=== PATIENT | female | born 1955 | race Caucasian/White ===

== ENCOUNTER → 2022-04-07 | Outpatient (CLI) | payer MEDICARE, SELFPAY ==
[2022-04-07 09:37] LABS: Hematocrit 42.6 % (37-47); Hemoglobin 14.1 g/dL (12.0-15.0); Mean Corp Hgb Conc 33.1 g/dL (32-36); Mean Corpuscular Hgb 29.9 pg (27.0-32.0); Mean Corpuscular Volume 90.3 fL (81-99); Mean Platelet Vol. 8.9 fl (6.2-12.0); Platelet Count 267 K/mm3 (150-450); RBC Distribution Width CV 12.5 % (11.6-14.6); RBC Distribution Width SD 41.6 fl (35.1-43.9); Red Blood Count 4.72 M/mm3 (4.2-5.4); White Blood Count 5.6 K/mm3 (4.4-11.0)
--- NOTE | 2022-04-07 09:40 | BI_ITS ---
MAMMOGRAPHY - BILATERAL SCREENING REASON FOR EXAM: Female, 67 years old. Routine annual screening examination. PERTINENT HISTORY: Sister with breast cancer. TECHNIQUE: Digital bilateral breast hortencia (3D mammographic acquisition) in the CC and MLO projections. 2-D mediolateral oblique (MLO) and craniocaudad (CC) views of both breasts were obtained. CAD: Full Field Digital Mammography with Computer Added Detection was performed. COMPARISON: Comparison is made with prior outside examination of 06/23/2015. FINDINGS: Breast Composition: There are scattered areas of fibroglandular density. There are no dominant masses or suspicious calcifications. Scattered bilateral skin calcifications. No other significant abnormalities are identified. There has been no significant change since the prior study. BI/SCRN MAMM (CAD)W/HORTENCIA BILAT IMPRESSION: Stable bilateral screening mammogram. Yearly follow-up mammogram recommended. (A) ASSESSMENT CATEGORY: BIRADS Category 2: Benign. A letter regarding these results will be sent to the patient by the facility within 30 days. Approximately 10% of breast cancers are not detected by mammography. A normal mammogram should not delay biopsy of a clinically suspicious abnormality. [id number] Electronically Signed: Isaiah Castillo MD at 10:29 EST ,
[2022-04-07 10:07] LABS: ALB/GLOB Ratio 1.1 RATIO (0.9-2.4); AST(SGOT) 16 U/L (15-37); Alanine Aminotransfer ALT/SGPT 24 U/L (13-56); Alkaline Phosphatase 91 U/L (45-117); Anion Gap 4 (5-15); BUN 14 mg/dL (7-18); BUN/Creat Ratio 29.5 RATIO (10-20); Chloride 104 mmol/L (98-107); Cholesterol 257 mg/dL (200); Creatinine, Serum 0.47 mg/dL (0.55-1.02); EST Glomerular Filtration Rate 140 mL/min (>60); Est Glom Filt Rate - Afr Amer 169 mL/min (>60); Globulin 3.8 g/dL (2.2-4.2); Glucose 96 mg/dL (74-106); High Density Lipoprotein 69 mg/dL; Potassium 3.9 mmol/L (3.5-5.1); Protein, Total 7.8 g/dL (6.4-8.2); Sodium Level 139 mmol/L (136-145); Triglycerides 89 mg/dL; Very Low Density Lipoprotein 18 mg/dL (5-40)
[2022-04-14 01:07] LABS: Lyme IgG P18 Ab Absent (.); Lyme IgG P23 Ab Present (.); Lyme IgG P28 Ab Absent (.); Lyme IgG P30 Ab Absent (.); Lyme IgG P39 Ab Absent (.); Lyme IgG P41 Ab Absent (.); Lyme IgG P45 Ab Absent (.); Lyme IgG P58 Ab Absent (.); Lyme IgG P66 Ab Absent (.); Lyme IgG P93 Ab Absent (.); Lyme IgM P23 Ab Present (.); Lyme IgM P39 Ab Present (.); Lyme IgM P41 Ab Absent (.)
[2022-04-14 07:39] LABS: Lyme IgG WB Interpretation Negative (.); Lyme IgM WB Interpretation Positive (.)
== END | disposition home or self-care (01) ==
PROVIDERS: PCP Nurse Practitioner Family
DX: Z12.31 Encounter for screening mammogram for malignant neoplasm of breast (principal); Z80.3 Family history of malignant neoplasm of breast; Z13.0 Encounter for screening for diseases of the blood and blood-forming organs and certain disorders involving the immune mechanism; Z13.220 Encounter for screening for lipoid disorders; E66.9 Obesity, unspecified; A69.20 Lyme disease, unspecified
CPT/HCPCS: 36415; 77063; 77067; 80053; 80061; 85027; 86617

== ENCOUNTER → 2022-07-25 | Outpatient (CLI) | payer MEDICARE, SELFPAY ==
[2022-07-25 10:38] LABS: Erythrocyte Sedimentation Rate 3 mm/hr (0-30)
[2022-07-25 10:42] LABS: Hematocrit 41.4 % (37-47); Hemoglobin 13.6 g/dL (12.0-15.0); Mean Corp Hgb Conc 32.9 g/dL (32-36); Mean Corpuscular Hgb 30.1 pg (27.0-32.0); Mean Corpuscular Volume 91.6 fL (81-99); Mean Platelet Vol. 9.6 fl (6.2-12.0); Platelet Count 251 K/mm3 (150-450); RBC Distribution Width CV 12.5 % (11.6-14.6); RBC Distribution Width SD 42.1 fl (35.1-43.9); Red Blood Count 4.52 M/mm3 (4.2-5.4); White Blood Count 5.1 K/mm3 (4.4-11.0)
[2022-07-25 10:58] LABS: CRP < 2.90 mg/L (0.0-3.0); Rheumatoid Factor < 10.0 IU/mL (<15)
[2022-07-26 15:23] LABS: ANTINUCLEAR ANTIBODIES DIRECT Negative (Negative)
[2022-07-26 15:24] LABS: CCP IgG Antibodies 0 units (0-19)
== END | disposition home or self-care (01) ==
LOC: LAB 09:36
PROVIDERS: PCP Nurse Practitioner Family; Visit Provider Nurse Practitioner Family
DX: A69.20 Lyme disease, unspecified (principal)
CPT/HCPCS: 36415; 85027; 85652; 86038; 86140; 86200; 86431

== ENCOUNTER 2022-10-06 08:50 | Day surgery (SDC) | payer MEDICARE, SELFPAY ==
[2022-10-06] VITALS (8 sets, daily range): BP systolic 119–145; BP diastolic 75–97; PULSE 72–76; RESP 16–108; TEMP 36.2–36.6; O2SAT 96–100; BMI 32.4
--- NOTE | 2022-10-06 | COLBX_PTH ---
PATIENT: KATHIA SPIVEY LOC: EN U#:[id number] AGE/SX: 67/F ROOM: RE10/06/[address]: Dr. Mango Aiken DO : 1955 BED: DIS: 10/06/2022 SPEC #: [id number] RECD: 10/06/22 13:57 STATUS: RE REMarcello #: [id number] MARTA: 10/06/22 00:[address]: Mango Aiken DEPT: SURGICAL PATHOLOGY RECD BY: Byron Bell ENTERED: 10/06/22 13:57 SP TYPE: COLON BX OTHR DR: Zayda Guerra, VICE PRESIDENT OF MARKETING-C Tissues: A - Cecum, NOS B - SPLENIC FLEXURE Procedures: Surgery Specimen Level IV HEADER OPERATION: Colonoscopy ? open access (MAC), polypectomy, biopsy PRE-OP DIAGNOSIS: Screening TISSUE SUBMITTED: A ? Polyp cecum, B ? Polyp splenic flexure MICROSCOPIC DIAGNOSIS A. Cecal polyp, biopsy: Tubular adenoma. B. Colon polyp at splenic flexure, biopsy: Tubular adenoma. AM:aneesh 10/07/2022 MICROSCOPIC DESCRIPTION Slides are reviewed. GROSS DESCRIPTION A - Received in fixative is one container labeled with the patient's name and designated polyp cecum. The specimen consists of one irregular fragment of light nava soft tissue that measures 0.4 x 0.3 x 0.1 cm. The specimen is totally submitted in one cassette. B - Received in fixative is one container labeled with the patient's name and designated polyp splenic flexure. The specimen consists of one irregular fragment of light nava soft tissue that measures 0.5 x 0.2 x 0.1 cm. The specimen is totally submitted in one cassette. / SJ:aneesh 10/06/2022 TC:5 CPT: 60477 x2
[2022-10-06] MEDS: Lactated Ringers 1,000 ML 15 ML IV (09:28)
--- NOTE | 2022-10-06 10:07 | HP.PCM_ITS ---
HPI - General General Date of Admission: 10/06/22 Date of Service: 10/06/22 Chief Complaint: Colonoscopy HPI Narrative KATHIA SPIVEY, is a 67 F who presents today for colonoscopy. She had a colonoscopy approximately 3 years ago at [facility] and was determined to have at least 3 adenomatous polyps that were removed. She comes back today for surveillance colonoscopy. She is not having abdominal pain. Since she denies any cramping. Has not any chest pain shortness of breath. [facility] Medical History (Updated 10/03/22 @ 14:41 by Jennyfer Dyson) Arthritis Excessive bleeding Heartburn History of colon polyps History of trigger finger Non-smoker PONV (postoperative nausea and vomiting) Wears glasses Wears partial dentures Home Medications aspirin 81 mg tablet,delayed release (Adult Low Dose Aspirin) 81 mg PO DAILY 07/20/22 [History Last Taken Unknown] multivitamin 1 tab PO DAILY 07/20/22 [History Last Taken Unknown] vitamins A,C,and E-selenium capsule (Super Antioxidant capsule) 1 cap PO DAILY 07/20/22 [History Last Taken Unknown] ascorbic acid (vitamin C) 500 mg tablet 500 mg PO DAILY 10/03/22 [History Last Taken Unknown] omega 1-emf-ehl-fish oil 1,200 mg (144 mg-216 mg) capsule (Fish Oil) 1 cap PO DAILY 10/03/22 [History Last Taken Unknown] Allergy/AdvReac Type Severity Reaction Status Date / Time codeine Allergy Nausea/Vom/ Verified 10/06/22 09:22 Diarrhea meperidine [From Demerol] AdvReac Nausea/Vom/ Verified 10/06/22 09:22 Diarrhea tramadol AdvReac Nausea/Vom/ Verified 10/06/22 09:22 Diarrhea Surgical History (Updated 10/03/22 @ 14:33 by Jennyfer Dyson) History of appendectomy History of bilateral carpal tunnel release History of cholecystectomy History of colonoscopy History of foot surgery History of hysterectomy History of tonsillectomy Social History Smoking Status: Never smoker ROS Review of Systems ROS Unobtainable: other Constitutional Constitutional: Denies fatigue, fever(s), poor appetite, weight gain or weight loss ENT HEENT: Denies mouth lesions Cardiovascular Cardiovascular: Denies abdominal bloating, abdominal edema or abdominal pain Respiratory/Chest Respiratory/Chest: Denies change in mental status, change in phlegm color, chest congestion or chest tightness Gastrointestinal Gastrointestinal: Denies belching, bloating, change in bowel habits, change in stool character, chewing difficulty, coffee ground emesis, constipation, crampi ng, diarrhea, dyspepsia, dysphagia, early satiety, excessive flatus, fecal incontinence, heartburn, hematemesis, hematochezia, hemorrhoids, loose stools, melena, nausea, odynophagia, rectal bleeding, tenesmus, vomiting or weight changes Genitourinary Genitourinary: Denies abdominal discomfort, burning urination or itching Musculoskeletal Musculoskeletal: Reports as per HPI; Denies muscle weakness or myalgias Integumentary Integumentary: Denies jaundice Neurologic Neurologic: Denies lack of coordination or weakness Psychiatric Psychiatric: Denies confusion, depression, memory loss, mood swings, paranoia or suicidal ideation Endocrine Endocrinology: Denies systems reviewed and no addt'l complaints, except as documented Hematologic/Lymphatic Hematologic/Lymphatic: Denies anemia, easy bleeding, easy bruising or lymphadenopathy Allergic/Immunologic Allergic/Immunologic: Denies systems reviewed and no addt'l complaints, except as documented Vital Signs Vital Signs Vital Signs: 10/06/22 09:23 10/06/22 09:23 Temperature 97.9 F Temperature Source Temporal Pulse Rate 76 Respiratory Rate 16 Respiratory Pattern Normal Blood Pressure 135/85 H Blood Pressure Mean 101 Blood Pressure Source Monitor Blood Pressure Position Semi-Fowlers Blood Pressure Location Right Arm Pulse Ox 100 Oxygen Delivery Method Room Air Weight Weight: 183 lb Body Mass Index (BMI) 32.4 Assessment & Plan Assessment/Plan (1) Encounter for screening for malignant neoplasm of colon: PLAN: She was explained alternatives, benefits, risks including outstanding bleeding, infection, sepsis, perforation, need for emergent surgery . She will have an ASA of 2.
--- NOTE | 2022-10-06 10:46 | OP.CCLET_ITS ---
10/06/2022 Misha Stewart Re : Colonoscopy procedure for Nancy Rausch Dear Charlie This procedure was performed on September. My impressions and recommendations are as follows: Impressions : - Diverticulosis in the recto-sigmoid colon, in the sigmoid colon and in the descending colon. - One 5 mm polyp in the sigmoid colon, removed with a jumbo cold forceps. Resected and retrieved. - One 9 mm polyp in the cecum, removed with a hot snare. Resected and retrieved. Recommendations : - Repeat colonoscopy in 3 years for surveillance. - Continue present medications. My findings are described in the full procedure note, which is enclosed. If I can be of further assistance, please feel free to contact me at . Sincerely, Mango Aiken, 10/06/2022 10:45:22 AM This report has been signed electronically.
--- NOTE | 2022-10-06 10:46 | OP.COLON_ITS ---
Patient Name: Nancy Rausch Procedure Date: 10/06/2022 10:11 AM Date of : 1955 Age: 67 Procedure: Colonoscopy Indications: High risk colon cancer surveillance: Personal history of colonic polyps Providers: Mango Aiken DO Referring MD: Mango Aiken DO Medicines: Monitored Anesthesia Care Patient Profile: This is a 67 year old female. Refer to note in patient chart for documentation of history and physical. Last Colonoscopy: 3 years ago. Complications: No immediate complications. Procedure: Pre-Anesthesia Assessment: - Prior to the procedure, a History and Physical was performed, and patient medications and allergies were reviewed. The risks and benefits of the procedure and the sedation options and risks were discussed with the patient. All questions were answered and informed consent was obtained. Patient identification and proposed procedure were verified by the physician in the pre-procedure area. Mental Status Examination: alert and oriented. Airway Examination: normal oropharyngeal airway and neck mobility. Respiratory Examination: clear to auscultation. CV Examination: normal. Prophylactic Antibiotics: The patient does not require prophylactic antibiotics. Prior Anticoagulants: The patient has taken no previous anticoagulant or antiplatelet agents. After reviewing the risks and benefits, the patient was deemed in satisfactory condition to undergo the procedure. The anesthesia plan was to use monitored anesthesia care (MAC). Immediately prior to administration of medications, the patient was re-assessed for adequacy to receive sedatives. The heart rate, respiratory rate, oxygen saturations, blood pressure, adequacy of pulmonary ventilation, and response to care were monitored throughout the procedure. The physical status of the patient was re-assessed after the procedure. After I obtained informed consent, the scope was passed under direct vision. Throughout the procedure, the patient's blood pressure, pulse, and oxygen saturations were monitored continuously. The pediatric colonoscope was introduced through the anus and advanced to the cecum, identified by appendiceal orifice and ileocecal valve. The colonoscopy was performed without difficulty. The patient tolerated the procedure well. The quality of the bowel preparation was adequate. Scope In: 10:22:03 AM Scope Withdrawal Time 0 hours 9 minutes 57 seconds Scope Out: 10:36:58 AM Total Procedure Duration Time 0 hours 14 minutes 55 seconds Findings: The perianal and digital rectal examinations were normal. A few small and large-mouthed diverticula were found in the recto-sigmoid colon, sigmoid colon and descending colon. A 5 mm polyp was found in the sigmoid colon. The polyp was sessile. The polyp was removed with a jumbo cold forceps. Resection and retrieval were complete. Verification of patient identification for the specimen was done. Estimated blood loss was minimal. A 9 mm polyp was found in the cecum. The polyp was sessile. The polyp was removed with a hot snare. Resection and retrieval were complete. Verification of patient identification for the specimen was done. Estimated blood loss was minimal. Impression: - Diverticulosis in the recto-sigmoid colon, in the sigmoid colon and in the descending colon. - One 5 mm polyp in the sigmoid colon, removed with a jumbo cold forceps. Resected and retrieved. - One 9 mm polyp in the cecum, removed with a hot snare. Resected and retrieved. Recommendation: - Repeat colonoscopy in 3 years for surveillance. - Continue present medications. Procedure Code(s): --- Professional --- 17835, Colonoscopy, flexible; with removal of tumor(s), polyp(s), or other lesion(s) by snare technique 42216, 59, Colonoscopy, flexible; with biopsy, single or multiple CPT copyright 2017 [employer]. All rights reserved. The codes documented in this report are preliminary and upon director of revenue review may be revised to meet current compliance requirements. Mango Aiken DO 10/06/2022 10:45:22 AM This report has been signed electronically. Number of Addenda: 0 Note Initiated On: 10/06/2022 10:11 AM
== END 2022-10-06 12:22 | disposition home or self-care (01) ==
LOC: EN 08:51 → AC 09:12
PROVIDERS: PCP Nurse Practitioner Family; Referring Provider Nurse Practitioner Family; Visit Provider Internal Medicine Gastroenterology
PROC: 0DJD8ZZ Inspection of Lower Intestinal Tract, Via Natural or Artificial Opening Endoscopic (ICD-10-PCS; CPT 45378; principal; 2022-10-06 09:55)
DX: Z12.11 Encounter for screening for malignant neoplasm of colon (principal); K57.30 Diverticulosis of large intestine without perforation or abscess without bleeding; Z86.010 Personal history of colon polyps; Z79.82 Long term (current) use of aspirin; D12.0 Benign neoplasm of cecum; D12.3 Benign neoplasm of transverse colon
CPT/HCPCS: 45380; 45385; 88305; J7120; J2405

== ENCOUNTER → 2023-10-12 | Outpatient (CLI) | payer MEDICARE, SELFPAY ==
--- NOTE | 2023-10-12 08:58 | US_ITS ---
STUDY: ABDOMINAL ULTRASOUND REASON FOR EXAM: Female, 68 years old. Diffuse abdominal pain TECHNIQUE: Transabdominal ultrasound was performed with real-time and static marc scale imaging. TECHNICAL QUALITY: Adequate. COMPARISON: None. FINDINGS: Liver: The liver measures 17.1 cm. There is increased echogenicity consistent with fatty infiltration. The bile ducts are within normal limits. There is hepatic color flow. The direction of portal flow is hepatopetal. There is no demonstrated mass lesion. Portal vein measurement: Gallbladder: The patient is status post cholecystectomy. Common Bile Duct (C.B.D.): The common bile duct measures 6 mm. Pancreas: Normal size of the head, body and tail of the pancreas. There is normal echogenicity of the pancreas. There is no demonstrated pancreatic mass or cyst. Spleen: Normal size of the spleen. The spleen measures 9.2 cm. Right Kidney: Normal size of the right kidney. The right kidney measures 10.8 x 5.3 x 4.6 cm. Normal renal cortex. The right cortex measures 1.2 cm. There is no demonstrated renal mass or cyst. There is no right hydronephrosis. Left Kidney: Normal size of the left kidney. The left kidney measures 12.7 x 5.4 x 5.2 cm. Normal renal cortex. The left cortex measures 1.3 cm. There is no demonstrated renal mass or cyst. There is no left hydronephrosis. Aorta: Tapers normally I.V.C.: The IVC is patent. There is no ascites. US/Abdomen Complete IMPRESSION: Fatty liver, no discrete lesion Previous cholecystectomy Electronically Signed: Daniel Najera MD at 12:50 EDT ,
[2023-10-12 10:24] LABS: Hemoglobin 11.9 g/dL (12.0-15.0); Mean Corp Hgb Conc 32.2 g/dL (32-36); Mean Corpuscular Hgb 29.7 pg (27.0-32.0); Mean Corpuscular Volume 92.3 fL (81-99); Mean Platelet Vol. 8.9 fl (6.2-12.0); Platelet Count 349 K/mm3 (150-450); RBC Distribution Width CV 12.1 % (11.6-14.6); RBC Distribution Width SD 41.1 fl (35.1-43.9); Red Blood Count 4.01 M/mm3 (4.2-5.4); White Blood Count 4.8 K/mm3 (4.4-11.0)
[2023-10-12 11:05] LABS: ALB/GLOB Ratio 0.9 RATIO (0.9-2.4); AST(SGOT) 20 U/L (15-37); Alanine Aminotransfer ALT/SGPT 29 U/L (13-56); Albumin, Serum 3.4 g/dL (3.2-5.0); Alkaline Phosphatase 68 U/L (45-117); Anion Gap 7 (5-15); BUN 13 mg/dL (7-18); BUN/Creat Ratio 25.7 RATIO (10-20); Calcium,Total 9.3 mg/dL (8.5-10.1); Chloride 108 mmol/L (98-107); EST Glomerular Filtration Rate 129 mL/min (>60); Est Glom Filt Rate - Afr Amer 157 mL/min (>60); Globulin 3.6 g/dL (2.2-4.2); Glucose 89 mg/dL (74-106); Potassium 3.8 mmol/L (3.5-5.1); Sodium Level 141 mmol/L (136-145)
== END | disposition home or self-care (01) ==
PROVIDERS: PCP Family Medicine; Referring Provider Nurse Practitioner Family; Visit Provider Nurse Practitioner Family
DX: R10.9 Unspecified abdominal pain (principal)
CPT/HCPCS: 36415; 76700; 80053; 85027

== ENCOUNTER 2025-05-07 12:58 | Emergency (ER) | payer MEDICARE, SELFPAY ==
[2025-05-07 12:59] VITALS: BP 164/88; PULSE 79; RESP 16; TEMP 36.2; O2SAT 100
[2025-05-07 13:12] LABS: Hematocrit 42.4 % (37-47); Hemoglobin 14.0 g/dL (12.0-15.0); Immature Granulocytes Count 0.010 X10^3/uL (0.0-0.0); Mean Corp Hgb Conc 33.0 g/dL (32-36); Mean Corpuscular Volume 90.2 fL (81-99); Mean Platelet Vol. 9.2 fl (6.2-12.0); NRBC Flagged by Analyzer 0 % (0-5); Platelet Count 269 K/mm3 (150-450); RBC Distribution Width CV 12.3 % (11.6-14.6); RBC Distribution Width SD 40.5 fl (35.1-43.9); Red Blood Count 4.70 M/mm3 (4.2-5.4); White Blood Count 5.9 K/mm3 (4.4-11.0)
[2025-05-07 13:37] LABS: AST(SGOT) 27 U/L (<=31); Alanine Aminotransfer ALT/SGPT 33 U/L (<=34); Albumin, Serum 4.6 g/dL (3.4-4.8); Alkaline Phosphatase 85 U/L (35-104); Anion Gap 9 (5-15); BUN 7 mg/dL (4-19); BUN/Creat Ratio 13.2 RATIO (10-20); Calcium,Total 10.1 mg/dL (7.6-11.0); Carbon Dioxide 28.5 mmol/L (21.0-32.0); Chloride 102 mmol/L (98-108); Globulin 2.8 g/dL (2.2-4.2); Glucose 95 mg/dL (70-99); Potassium 4.0 mmol/L (3.3-5.1)
[2025-05-07 14:58] VITALS: BP 161/91; PULSE 78; O2SAT 100
[2025-05-07 15:11] LABS: Mucous, Urine 0 SEEN /hpf (<or=2+); Red Blood Cells-Urine 0 SEEN /hpf (0-5); Squamous Epithelial Cells - UA 0 SEEN /hpf (5-10)
[2025-05-07 15:12] LABS: Color, Urine Straw (Yellow); Glucose, Dipstick Normal (Normal); Ketone-Dipstick Negative (Negative); Leukocyte Esterase-Dipstick Negative /ul (Negative); Nitrite-Dipstick Negative (Negative); Occult Blood-Urine 10 /ul (Negative); Protein-Dipstick Negative (Negative); Specific Gravity, Urine 1.010 (1.002-1.030); Urine Bilirubin Dipstick Negative (Negative)
[2025-05-07] MEDS: 0.9% Normal Saline (1000mL) 1,000 ML 125 ML IV (15:15)
[2025-05-07 16:00] VITALS: BP 134/79; PULSE 56; O2SAT 96
[2025-05-07 16:07] LABS: Anion Gap 10 (5-15); BUN 7 mg/dL (4-19); BUN/Creat Ratio 14.0 RATIO (10-20); Calcium,Total 9.5 mg/dL (7.6-11.0); Carbon Dioxide 27.3 mmol/L (21.0-32.0); Chloride 104 mmol/L (98-108); Glucose 94 mg/dL (70-99); Potassium 3.6 mmol/L (3.3-5.1)
--- NOTE | 2025-05-07 16:49 | EX.ED.DYSGE1 ---
HPI History of Present Illness Chief Complaint: Flank Pain Detail of Chief Complaint: Left-sided flank/left lower quadrant abdominal pain Informant: patient Onset/Context/Timing Onset: Yesterday and - (Triage documents pain started 3 days ago. Patient told me yesterday.) Context: Sudden Onset Timing: Continuous and Waxes and wanes Quality: Pain Location: Left flank/left lower quadrant Current Severity: Mild Maximum Severity: Severe Worsened by: Nothing specific Relieved by: If patient flexes at the hip feels better Associated Symptoms Associated Symptoms: None Narrative Narrative: Patient is a 70-year-old woman. She has history of hysterectomy with unilateral salpingo-oophorectomy approximate 40 years ago, cholecystectomy, appendectomy, recent colonoscopy by Dr. Gentile. Patient and family states they were told everything looks fine . He has also had orthopedic surgery. She is on an aspirin. Review of records indicates patient has history of heartburn. She is a non-smoker. Patient denies fever, chills night sweats. Patient [place] cough, shortness of breath or difficulty breathing. Patient denies chest pain. Patient denies heartburn, indigestion. Patient denies dysuria, frequency, urgency or hematuria. Patient denies vaginal discharge or bleeding. Patient denies direct or indirect trauma. Patient has not noted a rash. Patient denies prior symptoms. Prior similar symptoms: No Recent Illness/Hospitalization: No [facility] Medical History Wears glasses Wears partial dentures Arthritis Excessive bleeding Heartburn Non-smoker PONV (postoperative nausea and vomiting) History of trigger finger History of colon polyps Home Medications ?Medication ?Instructions ?Recorded ?Last Taken ?Type aspirin 81 mg tablet,delayed 81 mg PO DAILY 07/20/22 Unknown History release (Adult Low Dose Aspirin) multivitamin 1 tab PO DAILY 07/20/22 Unknown History vitamins A,C,and E-selenium 1 cap PO DAILY 07/20/22 Unknown History capsule (Super Antioxidant capsule) ascorbic acid (vitamin C) 500 mg 500 mg PO DAILY 10/03/22 Unknown History tablet omega 1-nzs-rli-fish oil 1,200 mg 1 cap PO DAILY 10/03/22 Unknown History (144 mg-216 mg) capsule (Fish Oil) amoxicillin 875 mg-potassium 875 mg (0.875 x 875-125 mg) PO 05/07/25 Unknown Rx clavulanate 125 mg tablet Q12H #20 TABLETS hydrocodone-acetaminophen 5-325mg 1 tab PO Q6H PRN PRN Pain 3 days 05/07/25 Unknown Rx 5mg-325mg #10 TABLETS Allergy/AdvReac Type Severity Reaction Status Date / Time codeine Allergy Nausea/Vom/ Verified 05/07/25 12:59 Diarrhea meperidine (From Demerol) AdvReac Nausea/Vom/ Verified 05/07/25 12:59 Diarrhea tramadol AdvReac Nausea/Vom/ Verified 05/07/25 12:59 Diarrhea Family History no significant family his Surgical History History of hysterectomy History of bilateral carpal tunnel release History of foot surgery History of cholecystectomy History of tonsillectomy History of appendectomy History of colonoscopy Social History Smoking Status: Never smoker ROS ROS ED Constitutional Constitutional ED: Denies chills, fever(s), subjective, sweats or weight loss Cardiovascular Cardiovascular: Denies chest pain, palpitations or racing heartbeat Respiratory/Chest Respiratory/Chest: Denies cough, dyspnea or dyspnea on exertion Gastrointestinal Gastrointestinal: Reports abdominal pain; Denies constipation, diarrhea, melena, nausea or vomiting Genitourinary Genitourinary ED: Denies dysuria, hematuria or urinary frequency Musculoskeletal Musculoskeletal: Reports back pain; Denies arthralgias, myalgias or neck pain Integumentary Denies rash Neurologic Neurologic: Denies paresthesias or weakness Hematologic/Lymphatic Hematologic/Lymphatic: Reports systems reviewed and no addt'l complaints, except as documented EXAM Physical Exam Const Vital Signs: 05/07/25 12:59 05/07/25 14:58 05/07/25 16:00 Temperature 97.2 F L Temperature Source Temporal Pulse Rate 79 78 56 L Respiratory Rate 16 Blood Pressure 164/88 H 161/91 H 134/79 H Blood Pressure Mean 113 114 97 Pulse Ox 100 100 96 Oxygen Delivery Method Room Air Room Air 05/07/25 18:00 Temperature Temperature Source Pulse Rate 78 Respiratory Rate 15 Blood Pressure 140/78 H Blood Pressure Mean 98 Pulse Ox 97 Oxygen Delivery Method Room Air Positive well nourished and well developed General Appearance ED: well developed; Negative for pallor HEENT Reports dry mucous membranes HEENT Narrative: Head is atraumatic and normocephalic. Ears normal. Nares patent. Posterior pharynx is normal. Mouth ED: Yes dry mucous membranes Mouth: dry mucous membranes Eyes PERRL and EOMs intact bilaterally General Eye ED: Negative for pale conjunctiva or scleral icterus Neck no lymphadenopathy, supple and no JVD Resp normal respiratory effort and clear to auscultation bilaterally Cardio regular rate, regular rhythm, S1 normal heart sound, S2 normal heart sound and no murmurs GI normal to inspection, nondistended, normoactive bowel sounds, non-distended and no masses; Negative for non-tender or hepatosplenomegaly Auscultation: hypoactive bowel sounds Back/Spine no CVA tenderness Extremity normal to inspection General Extremety ED: Negative for edema or tenderness General Extremity: Negative for edema Neuro oriented x3 and CN's II-XII intact bilaterally Sensorium / Orientation: alert and orientation impaired Motor Exam: strength 5/5 throughout Psych mental status grossly normal Skin no rashes or lesions noted, no wounds and skin turgor normal General Skin Exam: Negative for jaundice or pallor Lesions: No lesion noted Rashes: No rashes noted MDM MDM MDM Narrative Medical decision making narrative: Differential diagnosis is musculoskeletal, ureterolithiasis with obstruction, retroperitoneal pathology, diverticulitis. Will obtain CBC, BMP, UA and depending on results of UA will obtain CT with or without contrast. History & Record Review Additional record(s) reviewed:: Prior outpatient record (Colonoscopy performed by Dr. Aiken September 2022. Colonoscopy reveals diverticulosis in the rectosigmoid colon. There was one 5 mm polyp that was noted and removed. Recommendation at that time was surveillance.) Lab Data Attestation: I reviewed the patient's lab results. Lab results narrative: CBC is remarkable for lymphocytosis. Competence of metabolic panel is unremarkable. BUN and creatinine are 7 and 0.55. CO2 anion gap is normal. Labs: Laboratory Results - last 24 hr 05/07/25 05/07/25 05/07/25 13:04 15:00 15:00 WBC 5.9 RBC 4.70 Hgb 14.0 Hct 42.4 MCV 90.2 MCH 29.8 MCHC 33.0 RDW Std Deviation 40.5 RDW Coeff of Randy 12.3 Plt Count 269 MPV 9.2 Immature Gran % (Auto) 0.200 Neut % (Auto) 45.3 L Lymph % (Auto) 46.5 H [place] % (Auto) 5.8 Eos % (Auto) 1.7 Baso % (Auto) 0.5 Absolute Neuts (auto) 2.7 Absolute Lymphs (auto) 2.73 Nucleated RBC % 0 Sodium 140 Potassium 4.0 Chloride 102 Carbon Dioxide 28.5 Anion Gap 9 BUN 7 Creatinine 0.55 L Est GFR (MDRD) Non-Af 100 BUN/Creatinine Ratio 13.2 Glucose 95 Calcium 10.1 Total Bilirubin 0.52 AST 27 ALT 33 Alkaline Phosphatase 85 Total Protein 7.4 Albumin 4.6 Globulin 2.8 Albumin/Globulin Ratio 1.6 Urine Color Straw Cancelled Urine Clarity Clear Urine pH Ur Specific [place] U Specif Grav (Refrac) Urine Protein Urine Glucose (UA) Urine Ketones Urine Occult Blood Urine Nitrite Urine Bilirubin Urine Urobilinogen Ur Leukocyte Esterase Urine RBC Urine WBC Ur Squamous Epith Cells Ur Transition Epith Cell Ur Renal Epithelial Cell Calcium Oxalate Crystal Uric Acid Crystals Triple Phos Crystals Other Crystals Amorphous Sediment Urine Bacteria Hyaline Casts Fine Granular Casts Coarse Granular Casts Waxy Casts RBC Casts WBC Casts Urine Mucus Urine Trichomonas Urine Yeast 05/07/25 05/07/25 05/07/25 15:00 15:00 15:00 WBC RBC Hgb Hct MCV MCH MCHC RDW Std Deviation RDW Coeff of Randy Plt Count MPV Immature Gran % (Auto) Neut % (Auto) Lymph % (Auto) [place] % (Auto) Eos % (Auto) Baso % (Auto) Absolute Neuts (auto) Absolute Lymphs (auto) Nucleated RBC % Sodium Potassium Chloride Carbon Dioxide Anion Gap BUN Creatinine Est GFR (MDRD) Non-Af BUN/Creatinine Ratio Glucose Calcium Total Bilirubin AST ALT Alkaline Phosphatase Total Protein Albumin Globulin Albumin/Globulin Ratio Urine Color Urine Clarity Cancelled Urine pH 8.0 Cancelled Ur Specific [place] 1.010 Cancelled U Specif Grav (Refrac) Cancelled Urine Protein Negative Urine Glucose (UA) Urine Ketones Urine Occult Blood Urine Nitrite Urine Bilirubin Urine Urobilinogen Ur Leukocyte Esterase Urine RBC Urine WBC Ur Squamous Epith Cells Ur Transition Epith Cell Ur Renal Epithelial Cell Calcium Oxalate Crystal Uric Acid Crystals Triple Phos Crystals Other Crystals Amorphous Sediment Urine Bacteria Hyaline Casts Fine Granular Casts Coarse Granular Casts Waxy Casts RBC Casts WBC Casts Urine Mucus Urine Trichomonas Urine Yeast 05/07/25 05/07/25 05/07/25 15:00 15:00 15:00 WBC RBC Hgb Hct MCV MCH MCHC RDW Std Deviation RDW Coeff of Randy Plt Count MPV Immature Gran % (Auto) Neut % (Auto) Lymph % (Auto) [place] % (Auto) Eos % (Auto) Baso % (Auto) Absolute Neuts (auto) Absolute Lymphs (auto) Nucleated RBC % Sodium Potassium Chloride Carbon Dioxide Anion Gap BUN Creatinine Est GFR (MDRD) Non-Af BUN/Creatinine Ratio Glucose Calcium Total Bilirubin AST ALT Alkaline Phosphatase Total Protein Albumin Globulin Albumin/Globulin Ratio Urine Color Urine Clarity Urine pH Ur Specific [place] U Specif Grav (Refrac) Urine Protein Cancelled Urine Glucose (UA) Normal Cancelled Urine Ketones Negative Cancelled Urine Occult Blood 10 H Urine Nitrite Urine Bilirubin Urine Urobilinogen Ur Leukocyte Esterase Urine RBC Urine WBC Ur Squamous Epith Cells Ur Transition Epith Cell Ur Renal Epithelial Cell Calcium Oxalate Crystal Uric Acid Crystals Triple Phos Crystals Other Crystals Amorphous Sediment Urine Bacteria Hyaline Casts Fine Granular Casts Coarse Granular Casts Waxy Casts RBC Casts WBC Casts Urine Mucus Urine Trichomonas Urine Yeast 05/07/25 05/07/25 05/07/25 15:00 15:00 15:00 WBC RBC Hgb Hct MCV MCH MCHC RDW Std Deviation RDW Coeff of Randy Plt Count MPV Immature Gran % (Auto) Neut % (Auto) Lymph % (Auto) [place] % (Auto) Eos % (Auto) Baso % (Auto) Absolute Neuts (auto) Absolute Lymphs (auto) Nucleated RBC % Sodium Potassium Chloride Carbon Dioxide Anion Gap BUN Creatinine Est GFR (MDRD) Non-Af BUN/Creatinine Ratio Glucose Calcium Total Bilirubin AST ALT Alkaline Phosphatase Total Protein Albumin Globulin Albumin/Globulin Ratio Urine Color Urine Clarity Urine pH Ur Specific [place] U Specif Grav (Refrac) Urine Protein Urine Glucose (UA) Urine Ketones Urine Occult Blood Cancelled Urine Nitrite Negative Cancelled Urine Bilirubin Negative Cancelled Urine Urobilinogen Normal Ur Leukocyte Esterase Urine RBC Urine WBC Ur Squamous Epith Cells Ur Transition Epith Cell Ur Renal Epithelial Cell Calcium Oxalate Crystal Uric Acid Crystals Triple Phos Crystals Other Crystals Amorphous Sediment Urine Bacteria Hyaline Casts Fine Granular Casts Coarse Granular Casts Waxy Casts RBC Casts WBC Casts Urine Mucus Urine Trichomonas Urine Yeast 05/07/25 05/07/25 05/07/25 15:00 15:00 15:00 WBC RBC Hgb Hct MCV MCH MCHC RDW Std Deviation RDW Coeff of Randy Plt Count MPV Immature Gran % (Auto) Neut % (Auto) Lymph % (Auto) [place] % (Auto) Eos % (Auto) Baso % (Auto) Absolute Neuts (auto) Absolute Lymphs (auto) Nucleated RBC % Sodium Potassium Chloride Carbon Dioxide Anion Gap BUN Creatinine Est GFR (MDRD) Non-Af BUN/Creatinine Ratio Glucose Calcium Total Bilirubin AST ALT Alkaline Phosphatase Total Protein Albumin Globulin Albumin/Globulin Ratio Urine Color Urine Clarity Urine pH Ur Specific [place] U Specif Grav (Refrac) Urine Protein Urine Glucose (UA) Urine Ketones Urine Occult Blood Urine Nitrite Urine Bilirubin Urine Urobilinogen Cancelled Ur Leukocyte Esterase Negative Cancelled Urine RBC 0 SEEN Cancelled Urine WBC 0 SEEN Ur Squamous Epith Cells Ur Transition Epith Cell Ur Renal Epithelial Cell Calcium Oxalate Crystal Uric Acid Crystals Triple Phos Crystals Other Crystals Amorphous Sediment Urine Bacteria Hyaline Casts Fine Granular Casts Coarse Granular Casts Waxy Casts RBC Casts WBC Casts Urine Mucus Urine Trichomonas Urine Yeast 05/07/25 05/07/25 05/07/25 15:00 15:00 15:00 WBC RBC Hgb Hct MCV MCH MCHC RDW Std Deviation RDW Coeff of Randy Plt Count MPV Immature Gran % (Auto) Neut % (Auto) Lymph % (Auto) [place] % (Auto) Eos % (Auto) Baso % (Auto) Absolute Neuts (auto) Absolute Lymphs (auto) Nucleated RBC % Sodium Potassium Chloride Carbon Dioxide Anion Gap BUN Creatinine Est GFR (MDRD) Non-Af BUN/Creatinine Ratio Glucose Calcium Total Bilirubin AST ALT Alkaline Phosphatase Total Protein Albumin Globulin Albumin/Globulin Ratio Urine Color Urine Clarity Urine pH Ur Specific [place] U Specif Grav (Refrac) Urine Protein Urine Glucose (UA) Urine Ketones Urine Occult Blood Urine Nitrite Urine Bilirubin Urine Urobilinogen Ur Leukocyte Esterase Urine RBC Urine WBC Cancelled Ur Squamous Epith Cells 0 SEEN Cancelled Ur Transition Epith Cell Cancelled Ur Renal Epithelial Cell Cancelled Calcium Oxalate Crystal Cancelled Uric Acid Crystals Cancelled Triple Phos Crystals Cancelled Other Crystals Cancelled Amorphous Sediment Cancelled Urine Bacteria 0 SEEN Cancelled Hyaline Casts Cancelled Fine Granular Casts Cancelled Coarse Granular Casts Cancelled Waxy Casts Cancelled RBC Casts Cancelled WBC Casts Cancelled Urine Mucus 0 SEEN Urine Trichomonas Urine Yeast 05/07/25 05/07/25 15:00 15:26 WBC RBC Hgb Hct MCV MCH MCHC RDW Std Deviation RDW Coeff of Randy Plt Count MPV Immature Gran % (Auto) Neut % (Auto) Lymph % (Auto) [place] % (Auto) Eos % (Auto) Baso % (Auto) Absolute Neuts (auto) Absolute Lymphs (auto) Nucleated RBC % Sodium 141 Potassium 3.6 Chloride 104 Carbon Dioxide 27.3 Anion Gap 10 BUN 7 Creatinine 0.51 L Est GFR (MDRD) Non-Af 102 BUN/Creatinine Ratio 14.0 Glucose 94 Calcium 9.5 Total Bilirubin AST ALT Alkaline Phosphatase Total Protein Albumin Globulin Albumin/Globulin Ratio Urine Color Urine Clarity Urine pH Ur Specific [place] U Specif Grav (Refrac) Urine Protein Urine Glucose (UA) Urine Ketones Urine Occult Blood Urine Nitrite Urine Bilirubin Urine Urobilinogen Ur Leukocyte Esterase Urine RBC Urine WBC Ur Squamous Epith Cells Ur Transition Epith Cell Ur Renal Epithelial Cell Calcium Oxalate Crystal Uric Acid Crystals Triple Phos Crystals Other Crystals Amorphous Sediment Urine Bacteria Hyaline Casts Fine Granular Casts Coarse Granular Casts Waxy Casts RBC Casts WBC Casts Urine Mucus Cancelled Urine Trichomonas Cancelled Urine Yeast Cancelled Radiography Diagnostic Testing: Clinical Impression(s) from Imaging Studies Abdomen/Pelvis CT 05/07/25 17:22 IMPRESSION: 1. Mild/early acute uncomplicated sigmoid diverticulitis. 2. Punctate nonobstructive left renal stone. No hydronephrosis. 3. Diffuse hepatic steatosis. Reading Location: [facility] CT was reviewed. Agree patient has uncomplicated diverticulitis of the sigmoid colon. Radiologist also noted a punctate nonobstructive left renal stone without hydronephrosis and fatty liver. Treatment and Re-Evaluation :: Patient received first dose of antibiotic and pain medicine in the emergency department. She was discharged to home to follow-up with her doctor and Dr. Gentile as needed since she was recently scoped by him Discharge Plan Triage Chief Complaint: Flank Pain ED Provider: Marco Briones Dx/Rx/DC Orders Clinical Impression: Diverticulitis of sigmoid colon, Elevated blood-pressure reading without diagnosis of hypertension Instructions: ED Diverticulitis Prescriptions: New hydrocodone-acetaminophen 5-325 mg tablet 1 tab PO Q6H PRN PRN (Reason: Pain) 3 Days Qty: 10 0RF amoxicillin-pot clavulanate 875-125 mg tablet 875 mg PO Q12H Qty: 20 0RF No Action multivitamin Tablet 1 tab PO DAILY Super Antioxidant Capsule 1 cap PO DAILY aspirin [Adult Low Dose Aspirin] 81 mg tablet,delayed release (DR/EC) 81 mg PO DAILY ascorbic acid (vitamin C) [Super C] 500 mg Tablet 500 mg PO DAILY omega 1-jsp-[id number]-fish oil [Fish Oil] 1,200 (144-216) mg Capsule 1 cap PO DAILY Primary Care Provider: Dayana Becker Referrals: Dayana Becker MD [Primary Care Provider, Internal Medicine] - 3-5 Days Activity Restrictions/Additional Instructions: 1. Take medication as prescribed. 2. If you develop temperature greater than 100, shaking chills or severe pain return to the emergency department Print Language: Swedish Disposition Disposition: Home, Self Care
--- NOTE | 2025-05-07 17:22 | CT_ITS ---
PROCEDURE: CT ABDOMEN/PELVIS W IV CONT ONLY 05/07/2025 REASON FOR EXAM: LEFT LOWER QUADRANT PAIN, HISTORY OF DIVERTICULOSI TECHNIQUE: Procedure Code: [id number] Modality: CT Procedure: ABDOMEN/PELVIS W IV CONT ONLY Coronal and Sagittal reconstruction series were provided. CONTRAST: Isovue 370 VOLUME: 99 mL One or more dose reduction techniques were used (e.g., Automated exposure control, adjustment of the mA and/or kV according to patient size, use of iterative reconstruction technique. RADIATION DOSE SUMMARY: DLP: 934.89 mGycm COMPARISON: None. FINDINGS: Lung bases: Clear. Liver: Mild diffuse hepatic steatosis. Gallbladder: Surgically absent. Spleen: Unremarkable. Pancreas: Unremarkable. Adrenals: Unremarkable. Kidneys: Normal in size with symmetric enhancement. Punctate nonobstructive stone in the lower pole of the left kidney. No ureteral calculi or hydroureteronephrosis on either side. Bladder: Unremarkable. Reproductive Organs: Prior hysterectomy. Unremarkable adnexae. Bowel: Unremarkable stomach and small bowel. No evidence of obstruction. Appendix is surgically absent. Distal colonic diverticulosis. Mild pericolonic fat infiltration along the sigmoid colon likely reflecting mild/early acute uncomplicated sigmoid diverticulitis. Lymph nodes: No suspicious lymph node enlargement. Vasculature: Normal in course and caliber. Peritoneum / Retroperitoneum: No free fluid or air. Bones: Multilevel degenerative changes of the spine, with grade 1 anterolisthesis of L4 on L5. CT/Abdomen/Pelvis W IV Cont ONLY IMPRESSION: 1. Mild/early acute uncomplicated sigmoid diverticulitis. 2. Punctate nonobstructive left renal stone. No hydronephrosis. 3. Diffuse hepatic steatosis. Reading Location: [id number]
[2025-05-07 18:00] VITALS: BP 140/78; PULSE 78; RESP 15; O2SAT 97
[2025-05-07 19:09] VITALS: BP 140/78; PULSE 78; RESP 15; TEMP 36.2; O2SAT 97
[2025-05-07] MEDS: HYDROcodone Bitartrate/Apap 5/325 Tablet PO (19:13)
== END 2025-05-07 19:16 | disposition home or self-care (01) ==
PROVIDERS: Emergency Provider Emergency Medicine; PCP Student in an Organized Health Care Education/Training Program; Visit Provider Emergency Medicine
DX: K57.32 Diverticulitis of large intestine without perforation or abscess without bleeding (principal); Z79.82 Long term (current) use of aspirin; R03.0 Elevated blood-pressure reading, without diagnosis of hypertension; Z90.49 Acquired absence of other specified parts of digestive tract
CPT/HCPCS: 74177; 80048; 80053; 81001; 85025; 96361; 96374; 96375; 99283; Q9967; A4216; J2405